=== PATIENT | female | born 1955 | race Caucasian/White ===

== ENCOUNTER 2019-08-22 05:39 | Day surgery (SDC) | payer OTHER | END 2019-08-22 11:18 | disposition home or self-care (01) | LOC: AMB-ENDOS 05:39 | DX: K29.50 Unspecified chronic gastritis without bleeding (principal); K44.9 Diaphragmatic hernia without obstruction or gangrene ==

== ENCOUNTER 2019-10-21 07:20 | Day surgery (SDC) | payer OTHER | END 2019-10-21 12:45 | disposition home or self-care (01) | LOC: AMB-ENDOS 07:20 | DX: K62.89 Other specified diseases of anus and rectum (principal); Z12.11 Encounter for screening for malignant neoplasm of colon ==